=== PATIENT | female | born 1980 | race Caucasian/White ===

== ENCOUNTER → 2022-01-12 16:54 | Outpatient (CLI) | payer OTHER, SELFPAY ==
--- NOTE | ~2022-01-12 | MM_ITS ---
EXAMINATION: MM screening [facility] BI w ron HISTORY: Screening mammogram TECHNIQUE: Craniocaudal and mediolateral oblique 3-D tomosynthesis images were obtained and synthetic 2-D images were generated. CAD analysis was submitted and interpreted. COMPARISON: None, baseline BREAST PARENCHYMAL COMPOSITION: The breasts are heterogeneously dense, which may obscure small masses . FINDINGS: There is no suspicious mass, calcification, or architectural distortion to suggest malignan cy in either breast. IMPRESSION: 1. No mammographic evidence of malignancy. 2. Recommend routine screening mammography in one year. BI-RADS Category 1: Negative Reviewed, dictated and finalized at location A.
== END ==
PROVIDERS: PCP Internal Medicine; Visit Provider Internal Medicine
DX: Z12.31 Encounter for screening mammogram for malignant neoplasm of breast (principal)
CPT/HCPCS: 77063; 77067

== ENCOUNTER → 2023-01-26 12:19 | Outpatient (CLI) | payer OTHER, SELFPAY ==
--- NOTE | ~2023-01-26 | MM_ITS ---
EXAMINATION: MM screening [facility] BI w ron HISTORY: Screening mammogram TECHNIQUE: Craniocaudal and mediolateral oblique 3-D tomosynthesis images were obtained and synthetic 2-D images were generated. CAD analysis was submitted and interpreted. COMPARISON: 01/12/2022 BREAST PARENCHYMAL COMPOSITION: The breasts are extremely dense, which lowers the sensitivity of mamm ography. FINDINGS: No suspicious mass, calcification, or architectural distortion are identified in either ifrah ast to suggest malignancy. There has been no suspicious interval change. IMPRESSION: 1. No mammographic evidence of malignancy. 2. Recommend routine screening mammography in one year. BI-RADS Category 1: Negative Reviewed, dictated and finalized at location A.
== END ==
PROVIDERS: PCP Obstetrics & Gynecology; Visit Provider Obstetrics & Gynecology
DX: Z12.31 Encounter for screening mammogram for malignant neoplasm of breast (principal)
CPT/HCPCS: 77063; 77067

== ENCOUNTER 2024-02-05 10:56 | Outpatient (CLI) | payer OTHER, SELFPAY ==
--- NOTE | ~2024-02-05 | MM_ITS ---
EXAMINATION: MM screening [facility] BI w ron HISTORY: Screening TECHNIQUE: Craniocaudal and mediolateral oblique 3-D tomosynthesis images were obtained and synthetic 2-D images were generated. CAD analysis was submitted and interpreted. COMPARISON: Comparison to multiple prior studies sequentially, with oldest reviewed study dated 01/12. BREAST PARENCHYMAL COMPOSITION: Dense: The breasts are extremely dense, which lowers the sensitivity of mammography. FINDINGS: There is no evidence of suspicious mass, calcification, or architectural distortion to sugg est malignancy in either breast. There has been no suspicious interval change. IMPRESSION: 1. No mammographic evidence of malignancy. 2. Recommend routine screening mammography in one year. BI-RADS Category 1: Negative Reviewed, dictated and finalized at location B.
== END 2024-02-05 10:57 | disposition home or self-care (01) ==
PROVIDERS: PCP Internal Medicine; Visit Provider Obstetrics & Gynecology
DX: Z12.31 Encounter for screening mammogram for malignant neoplasm of breast (principal)
CPT/HCPCS: 77063; 77067

== ENCOUNTER 2025-02-06 15:57 | Outpatient (CLI) | payer OTHER, SELFPAY ==
--- NOTE | ~2025-02-06 | MM_ITS ---
EXAMINATION: MM screening [facility] BI w ron HISTORY: Screening TECHNIQUE: Craniocaudal and mediolateral oblique 3-D tomosynthesis images were obtained and synthetic 2-D images were generated. CAD analysis was submitted and interpreted. COMPARISON: 01/26/2023 BREAST PARENCHYMAL COMPOSITION: The breasts are extremely dense, which lowers the sensitivity of mammography. FINDINGS: There is no evidence of suspicious mass, calcification, or architectural distortion to suggest malignancy. Asymmetry in the upper right breast, middle depth, seen on the right MLO projection. Asymmetry in the medial left breast, middle depth, seen in the left CC projection. IMPRESSION: 1. Asymmetry in the upper right breast, middle depth, seen on the right MLO projection. The study is incomplete. A diagnostic mammogram and a diagnostic ultrasound are recommended. 2. Asymmetry in the medial left breast, middle depth, seen in the left CC projection. The study is incomplete. A diagnostic mammogram and a diagnostic ultrasound are recommended. BI-RADS 0: Incomplete-Need additional imaging evaluation. Reviewed, dictated and finalized at location Q. IMPRESSION: 1. Asymmetry in the upper right breast, middle depth, seen on the right MLO pro jection. The study is incomplete. A diagnostic mammogram and a diagnostic ultra sound are recommended. 2. Asymmetry in the medial left breast, middle depth, seen in the left CC proje ction. The study is incomplete. A diagnostic mammogram and a diagnostic ultraso und are recommended. BI-RADS 0: Incomplete-Need additional imaging evaluation.
== END 2025-02-06 15:58 | disposition home or self-care (01) ==
LOC: MICIMG 16:02
PROVIDERS: PCP Hospitalist; Visit Provider Hospitalist
DX: Z12.31 Encounter for screening mammogram for malignant neoplasm of breast (principal); R92.8 Other abnormal and inconclusive findings on diagnostic imaging of breast
CPT/HCPCS: 77063; 77067

== ENCOUNTER 2025-03-31 08:05 | Outpatient (CLI) | payer OTHER, SELFPAY ==
--- NOTE | ~2025-03-31 | MMUS_ITS ---
EXAMINATION: MM diagnostic [facility] BI w ron, US breast BI limited HISTORY: Additional imaging. TECHNIQUE: Craniocaudal and mediolateral oblique 3-D tomosynthesis images were obtained and synthetic 2-D images were generated. CAD analysis was submitted and interpreted. Grayscale sonography over the area(s) of interest with color Doppler if there is a finding. COMPARISON: February 06. BREAST PARENCHYMAL COMPOSITION: Dense: The breasts are extremely dense. This lowers the sensitivity of mammography. MAMMOGRAM FINDINGS: Convex contours are seen in the dense tissue of the lower inner quadrants. There are no suspicious calcifications. No unexplained architectural distortion is seen. There are no skin or nipple abnormalities identified. There is no adenopathy seen on the images submitted. ULTRASOUND FINDINGS: Sonography is performed through both lower quadrants and mostly shows extremely dense tissue and ductal ectasia. Incidental note is made of a tiny cyst at 7:00. No solid masses are seen. IMPRESSION: No mammographic or sonographic evidence to suggest malignancy is seen. The patient may return to screening mammography as per ACR guidelines. BI-RADS 2 - Benign. Reviewed, dictated and finalized at location B. 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 The dipika ent may return to screening mammography as per ACR guidelines. BI-RADS 2 - Benign.
== END 2025-03-31 08:06 | disposition home or self-care (01) ==
LOC: MICIMG 08:05
PROVIDERS: PCP Hospitalist; Visit Provider Hospitalist
DX: R92.8 Other abnormal and inconclusive findings on diagnostic imaging of breast (principal)
CPT/HCPCS: 76642; 77062; 77066; G0279